=== PATIENT | female | born 1955 | race Caucasian/White ===

== ENCOUNTER → 2017-12-12 | Outpatient (CLI) | payer OTHER ==
[~2017-12-12] MED LIST: CALCIUM 500+D1 EAC2 PO; CLONAZEPAM 1 MG1 M1 PO; LYRICA 50 MG50 MG PO; MAGNES; NORCO 5-325 TA1 EACH PO; OMEGA 3; SKELAXIN 800 M800 M1 PO; TOPAMAX25 M1 PO; TRAMADOL 50 MG50 MG PO; VERAPAMIL ER120 MG
== END ==
LOC: M.CT 08:51
DX: K59.00 Constipation, unspecified (principal)

== ENCOUNTER → 2017-12-16 | Outpatient (CLI) | payer OTHER | LOC: M.MRI 06:51 | DX: M47.22 Other spondylosis with radiculopathy, cervical region (principal); M48.02 Spinal stenosis, cervical region; M25.512 Pain in left shoulder ==

== ENCOUNTER → 2019-01-08 | Outpatient (CLI) | payer MEDICARE, OTHER ==
--- NOTE | 2019-01-08 15:18 | EKG ---
[place] [address] ELECTROCARDIOGRAM REPORT Name: DAY GUNTER Room: [facility]#: [id number] Admission: 01/08/19 Attend Phys: GABRIELA Wilde Discharge: Date of : 51 Report #: [id number] THIS REPORT FOR: //name// [facility] Test Date: 2019-01-08 Test Time: 14:16:19 Pat Name: DAY REGINOLUIS MARNOLDO Department: Room: Gender: F Price Checker: : 1955 Requested By: Joe Vo Order Number: [id number] Luzmaria MD: Shawn Stewart Measurements Intervals [place] Rate: 71 P: 33 [place]: 171 QRS: 50 QRSD: 96 T: 51 QT: 386 QTc: 420 Interpretive Statements Sinus rhythm Compared to ECG 10/16/2008 06:48:03 No significant changes Electronically Signed On 01-08-2019 15:18:26 CDT by Shawn Stewart [email or web address] <ELECTRONICALLY SIGNED> By: Shawn Stewart MD, [facility] 01/08/19 1518 1416 141 Shawn Stewart MD, FACC /EPI
== END ==
LOC: M.RAD 13:42
DX: R06.02 Shortness of breath (principal); R05 Cough; R53.83 Other fatigue; J45.40 Moderate persistent asthma, uncomplicated; R07.9 Chest pain, unspecified; Z82.49 Family history of ischemic heart disease and other diseases of the circulatory system; Z68.27 Body mass index [BMI] 27.0-27.9, adult

== ENCOUNTER → 2019-01-14 | Outpatient (CLI) | payer MEDICARE, OTHER | LOC: M.RAD 15:56 | DX: R05 Cough (principal); E03.9 Hypothyroidism, unspecified; G47.33 Obstructive sleep apnea (adult) (pediatric); Z88.8 Allergy status to other drugs, medicaments and biological substances ==

== ENCOUNTER → 2019-04-08 | Outpatient (CLI) | payer MEDICARE, OTHER ==
--- NOTE | 2019-04-11 09:00 | SLEEP ---
[address] [address] SLEEP STUDY REPORT Name: DAY GUNTER Room: [facility]#: [id number] Admission: 04/08/19 Attend Phys: Zuhair Tinoco MD Discharge: Date of : 51 Report #: [id number] THIS REPORT FOR: //name// CC: Zuhair Tinoco MD This study has been reviewed in its entirety by a board certified sleep specialist DATE OF SERVICE: 04/08/2019 SLEEP STUDY ATTENDING PHYSICIAN: Dr. Zuhair Tinoco. The patient is a 63-year-old who weighs 178 pounds with a BMI of 28.7. The patient's Leopold score was not available. The patient underwent a split night study at [facility]. During the night study, the patient spent 448 minutes in bed and slept for 243 minutes with a low sleep efficiency of 54%. Sleep latency was 15 minutes with a REM latency of 247 minutes. Overall, sleep architecture showed normal stage 1 and stage 2 sleep, normal slow wave and normal REM sleep. During the initial diagnostic portion of the study, the patient slept for 155 minutes. During that time, the patient had 25 obstructive apneas, no mixed apneas and 5 central apneas. The patient had 1 hypopnea. The patient's apnea-hypopnea index was 12 per hour with a REM index of 65 per hour and a supine index of 19 per hour. EKG monitoring revealed an average heart rate of 64 beats per minute. No sustained arrhythmias observed. PLMS were seen at an index of 62 per hour and 29 per hour caused EEG arousals. Nocturnal oximetry study revealed an average oxygen saturation of 94% with the lowest of 89%. No clinically significant desaturation less than 89% observed. The patient met the criteria for CPAP initiation. It was started at 5 cm water and titrated up to 10 cm of water. At the final pressure, the patient slept for 48 minutes. The patient had supine as well as REM sleep. The patient's AHI was reduced to 2.5 per hour and oxygen saturation remained above 92%. IMPRESSION: 1. Mild sleep apnea-hypopnea syndrome with moderate increase during supine sleep and further worsening during REM sleep. Total AHI of 12 per hour, [place] [address] SLEEP STUDY REPORT Name: DAY GUNTER Room: [facility]#: [id number] Admission: 04/08/19 Attend Phys: Zuhair Tinoco MD Discharge: Date of : 51 Report #: [id number] AHI of 19 per hour and a REM apnea-hypopnea index of 65 per hour. 2. No clinically significant nocturnal hypoxia. 3. Severe periodic limb movements. RECOMMENDATIONS: 1. CPAP at 10 cm water completely eliminated the patient's sleep apnea and should be used on a nightly basis. 2. Follow up in 4-6 weeks to assess compliance with CPAP and to document clinical improvement. 3. Weight loss is strongly advised. 4. Avoid NEWS ANALYST depressants. 5. Cautioned regarding driving until symptoms of sleep apnea resolve with the use of CPAP. 6. The patient should also be further evaluated for symptoms of restless legs during the day and if present, it can be treated with dopaminergic agonist agents. <ELECTRONICALLY SIGNED> By: Qasim Salazar MD 04/11/19 0900 1353 [id number] Salazar MD /nt
== END ==
LOC: M.SLEEPLAB 19:58
DX: G47.33 Obstructive sleep apnea (adult) (pediatric) (principal); G47.34 Idiopathic sleep related nonobstructive alveolar hypoventilation

== ENCOUNTER → 2019-06-07 | Outpatient (CLI) | payer MEDICARE, OTHER | LOC: M.RAD 13:39 | DX: Z12.31 Encounter for screening mammogram for malignant neoplasm of breast (principal) ==

== ENCOUNTER → 2021-01-09 | Outpatient (CLI) | payer MEDICARE, OTHER | LOC: M.RAD 09:50 | PROVIDERS: ATTEND Registered Nurse Diabetes Educator | DX: Z12.31 Encounter for screening mammogram for malignant neoplasm of breast (principal) ==

== ENCOUNTER → 2021-04-11 | Outpatient (CLI) | payer OTHER | LOC: M.CT 07:55 | PROVIDERS: ATTEND Registered Nurse Diabetes Educator | DX: Z13.6 Encounter for screening for cardiovascular disorders (principal); I25.10 Atherosclerotic heart disease of native coronary artery without angina pectoris ==

== ENCOUNTER → 2021-04-11 | Outpatient (CLI) | payer MEDICARE, OTHER ==
--- NOTE | 2021-04-11 16:13 | 2DMMODE ---
[place] [address] 2 D/M-MODE ECHOCARDIOGRAM Name: DAY GUNTER Room: [facility]#: [id number] Admission: 04/11/21 Attend Phys: GUERO Rodríguez Discharge: Date of : 51 Date of Service: 04/11/21 1613 Report #: [id number] THIS REPORT FOR: cc: Kala Houston Tammy RNP Holkins, John M. MD [facility] ~ APPROVED REPORT Study performed: 04/11/2021 11:27:53 EXAM: Comprehensive 2D, Doppler, and color-flow Echocardiogram Patient Location: Out-Patient BSA: 1.93 HR: 80 bpm BP: 120/80 mmHg Other Information Study Quality: Good Indications Aortic Valve Disease Prosthetic Valve Mitral Valve Disease 2D Dimensions IVSd: 10.30 (7-11mm) LVOT Diam: 19.15 (18-24mm) LVDd: 37.13 mm PWd: 12.68 (7-11mm) Ascending Ao: 26.82 (22-36mm) LVDs: 26.31 (25-40mm) Aortic Root: 28.48 mm Volumes Left Atrial Volume (Systole) LA ESV Index: 18.00 mL/m2 Aortic Valve AoV Peak Zeyad.: 1.11 m/s AO Peak Gr.: 4.91 mmHg LVOT Max P.27 mmHg AO Mean Gr.: 3.04 mmHg LVOT Mean P.65 mmHg LVOT Max V: 0.90 m/s AO V2 VTI: 21.72 cm LVOT Mean V: 0.59 m/s MARK (VTI): 2.47 cm2 LVOT V1 VTI: 18.63 [place] [address] 2 D/M-MODE ECHOCARDIOGRAM Name: DAY GUNTER Room: [facility]#: [id number] Admission: 04/11/21 Attend Phys: GUERO Rodríguez Discharge: Date of : 51 Date of Service: 04/11/21 1613 Report #: [id number] Mitral Valve E/A Ratio: 0.80 MV Decel. Time: 227.91 ms MV E Max Zeyad.: 0.57 m/s MV PHT: 66.09 ms MVA (PHT): 3.33 cm2 TDI E/Lateral E': 7.13 E/Medial E': 8.14 Medial E' Zeyda.: 0.07 m/s Lateral E' Zeyad.: 0.08 m/s Pulmonary Valve PV Peak Zeyad.: 0.90 m/s PV Peak Gr.: 3.21 mmHg Tricuspid Valve RAP Estimate: 5.00 mmHg TR Peak Gr.: 17.03 mmHg RVSP: 22.03 mmHg PA Pressure: 22.03 mmHg Left Ventricle The left ventricle is normal size. There is normal LV segmental wall motion. There is normal left ventricular wall thickness. Left ventricular systolic function is normal. The left ventricular ejection fraction is within the normal range. LVEF is 60-65%. Grade I - abnormal relaxation pattern. Right Ventricle The right ventricle is normal size. The right ventricular systolic function is normal. Atria The left atrium size is normal. The right atrium size is normal. Aortic Valve The aortic valve is normal in structure. No aortic regurgitation is present. There is no aortic valvular stenosis. Mitral Valve The mitral valve is normal in structure. Trace mitral regurgitation. No evidence of mitral valve stenosis. Tricuspid Valve The tricuspid valve is normal in structure. [place] [address] 2 D/M-MODE ECHOCARDIOGRAM Name: DAY GUNTER Room: [facility]#: [id number] Admission: 04/11/21 Attend Phys: GUERO Rodríguez Discharge: Date of : 51 Date of Service: 04/11/21 1613 Report #: [id number] Pulmonic Valve The pulmonary valve is normal in structure. Trace pulmonic regurgitation. Great Vessels The aortic root is normal in size. IVC is normal in size and collapses >50% with inspiration. Pericardium There is no pericardial effusion. <Conclusion> The left ventricle is normal size. There is normal left ventricular wall thickness. Left ventricular systolic function is normal. The left ventricular ejection fraction is within the normal range. LVEF is 60-65%. The right ventricle is normal size. The left atrium size is normal. The aortic valve is normal in structure. The mitral valve is normal in structure. The tricuspid valve is normal in structure. IVC is normal in size and collapses >50% with inspiration. There is no pericardial effusion. There is normal LV segmental wall motion. <ELECTRONICALLY SIGNED> By: Shawn Stewart MD, FACC 04/11/21 1613 161 161 Shawn Stewart MD, FACC /INF
--- NOTE | 2021-04-11 18:06 | CARDNUC ---
[place] [address] CARDIAC NUCLEAR IMAGING REPORT Name: REGINOLEANNADAY CATIE Room: [facility]#: [id number] Admission: 04/11/21 Attend Phys: GUERO Rodríguez Discharge: Date of : 51 Date of Service: 04/11/21 1806 Report #: [id number] THIS REPORT FOR: cc: Kala Houston Tammy RNP Liston, Michael J. MD [facility] ~ APPROVED REPORT Imaging Protocol: Stress Tc-99m/Rest Tc-99m 1 day Study performed: 04/11/2021 09:40:21 Indication: Chest pain, HERNANDEZ, left sided neck pain. Patient Location: Out-Patient Stress Tech: Bhumika Juárez Stress Nurse: Lore Francois RN Ht: 5 ft 6 in Wt: 183 lbs BSA: 1.93 m2 BMI: 29.53 Medical History Medical History: Chest pain, HERNANDEZ, left sided neck pain, headaches, dysphagia, HX sleep apnea/CPAP, FHX CAD. Medications: No Cardiac Meds Allergies: Requip, Dilia metal. Cardiac Risk Factors: Age, FHX of CAD, SOB. Previous Cardiac Procedures: None Pretest Chest Pain Characteristics: No chest pain Exercise History: Physically active Physical Disabilities: None voiced. Meds Held (24 hrs): None Resting Data Rest SPECT myocardial perfusion imaging was performed in supine position 30 minutes following the intravenous injection of 9.9 mCi of Tc-99m Sestamibi. Time of rest injection: 8:15 The images were gated to evaluate regional wall motion and calculate left ventricular ejection fraction. Administration Route: IV Administration Site: Left AC Exercise Stress At peak stress, the patient was injected intravenously with 28.8mCi of Tc-99m [place] [address] CARDIAC NUCLEAR IMAGING REPORT Name: DAY GUNTER Room: [facility]#: [id number] Admission: 04/11/21 Attend Phys: GUERO Rodríguez Discharge: Date of : 51 Date of Service: 04/11/21 1806 Report #: [id number] Time of stress injection: 9:55 Administration Route: IV Administration Site: Left AC Heart Rate at time of stress injection: 150 bpm. Patient continued to exercise for 1 minute(s). Gated Stress SPECT was performed 45 minutes after stress injection. The images were gated to evaluate regional wall motion and calculate left ventricular ejection fraction. Prone imaging was performed. Stress Test Details Stress Test: Exercise stress testing was performed using a Hira protocol. HR Max Heart Rate (APMHR): 153 bpm Resting HR: 78 bpm Target HR (85% APMHR): 130 bpm Max HR Achieved: 171 bpm % of APMHR: 111 Recovery HR: 98 bpm BP Resting BP: 134/97 mmHg Max BP: 201/71 mmHg Recovery BP: 143/75 mmHg ECG Resting ECG: Sinus Rhythm Stress ECG: Sinus Tachycardia ST Change: None Arrhythmia: None Recovery ECG: Sinus Rhythm Recovery ST Change: None Recovery Arrhythmia: None Clinical Reason for Termination: Completed protocol, Maximal effort. Stress Symptoms: dyspnea, lightheaded, leg fatigue. Exercise duration: 7 min 23 sec Exercise capacity: 9.19 METs Overall Exercise Capacity for Age: Superior The patient tolerated standard Hira protocol exercise without significant cardiac complaint. Nurse Comments A 65 year old female tolerated a treadmill nuclear stress test to stage 3. Patient was stable and stated she felt [place] [address] CARDIAC NUCLEAR IMAGING REPORT Name: DAY GUNTER Room: [facility]#: [id number] Admission: 04/11/21 Attend Phys: GUERO Rodríguez Discharge: Date of : 51 Date of Service: 04/11/21 1806 Report #: [id number] nuclear medicine for imaging. Exercise capacity - Superior. Stress ECG Conclusion The baseline twelve-lead EKG shows sinus rhythm without significant ST segment or T wave abnormality. EKGs obtained during and post exercise show sinus rhythm and sinus tachycardia with no significant ST segment or T wave changes when compared to baseline. There were no stress-induced arrhythmias. Study Quality Study: Good Artifact: No artifact Study Data At rest, the left ventricular ejection fraction was 84%.. Post stress, the left ventricular ejection was 79%.. TID = 0.94. Perfusion Perfusion images obtained at rest and post exercise stress show uniform uptake of the radioisotope throughout the myocardium. There were no defects to suggest infarct or ischemia. Wall Motion Normal left ventricular wall motion. Nuclear Conclusion ECG Findings: negative for ischemia Clinical Findings: negative for ischemia Nuclear Findings: negative for ischemia Exercise Capacity: normal Left Ventricular Function: normal Risk Study: low Perfusion images show no defect to suggest infarct or ischemia. Left ventricular systolic function appears normal on gated studies. This is a low risk study. <Conclusion> The baseline twelve-lead EKG shows sinus rhythm without significant ST segment or T wave abnormality. EKGs obtained during and post exercise show sinus rhythm and sinus tachycardia with [place] [address] CARDIAC NUCLEAR IMAGING REPORT Name: REGINOLEANNADAY CATIE Room: [facility]#: [id number] Admission: 04/11/21 Attend Phys: GUERO Rodríguez Discharge: Date of : 51 Date of Service: 04/11/21 1806 Report #: [id number] segment or T wave changes when compared to baseline. There were no stress-induced arrhythmias. <ELECTRONICALLY SIGNED> By: Loyd Silver MD, FACC 04/11/21 180 05 05 Loyd Silver MD, FAC /INF
== END ==
LOC: M.NUC 04-05 12:51
PROVIDERS: ATTEND Registered Nurse Diabetes Educator
DX: R00.0 Tachycardia, unspecified (principal); R55 Syncope and collapse; R07.89 Other chest pain; R06.02 Shortness of breath; M54.2 Cervicalgia; Z78.9 Other specified health status

== ENCOUNTER → 2021-04-17 | Outpatient (CLI) | payer MEDICARE, OTHER | LOC: M.RAD 15:07 | PROVIDERS: ATTEND Registered Nurse Diabetes Educator | DX: M47.812 Spondylosis without myelopathy or radiculopathy, cervical region (principal); M54.2 Cervicalgia; M25.78 Osteophyte, vertebrae; M48.02 Spinal stenosis, cervical region ==

== ENCOUNTER → 2021-10-24 | Outpatient (CLI) | payer MEDICARE, OTHER | LOC: M.CT 10-18 09:48 | PROVIDERS: ATTEND Registered Nurse Diabetes Educator | DX: U07.1 COVID-19 (principal); R51.9 Headache, unspecified; R44.3 Hallucinations, unspecified; R05.9 Cough, unspecified; R07.89 Other chest pain; Z79.899 Other long term (current) drug therapy ==

== ENCOUNTER → 2021-11-05 | Outpatient (CLI) | payer MEDICARE, OTHER | LOC: M.ULTRA 09:02 | PROVIDERS: ATTEND Registered Nurse Diabetes Educator | DX: R93.89 Abnormal findings on diagnostic imaging of other specified body structures (principal); U07.1 COVID-19; R03.0 Elevated blood-pressure reading, without diagnosis of hypertension; I10 Essential (primary) hypertension; M54.2 Cervicalgia; R42 Dizziness and giddiness ==

== ENCOUNTER → 2021-11-26 | Outpatient (CLI) | payer MEDICARE, OTHER | LOC: M.ULTRA 07:37 | PROVIDERS: ATTEND Registered Nurse Diabetes Educator | DX: K76.0 Fatty (change of) liver, not elsewhere classified (principal); R19.7 Diarrhea, unspecified; Z79.899 Other long term (current) drug therapy ==